=== PATIENT | female | born 1965 | race Caucasian/White ===

== ENCOUNTER 2016-10-11 08:07 | Emergency (ER) | payer OTHER ==
[~2016-10-11] VITALS: Ht 165.1 cm; Wt 54.4 kg
[~2016-10-11 08:07] MED LIST: ADDERALL 10 MG10 MG PO; CENTRUM SILVER1 EAC4 PO; CHROMIUM400 MCG PO; CO Q-10100 MG PO; DEPO-TESTO100 MG/1 M IM; DHEA25 MG PO; ESTRADIOL 1 MG T1 M1 IM; FISH OIL 1,001000 M2 PO; GLUCOSAMINE CH1 EAC2 PO; IBUPROFEN 600600 M1 PO; LUTEIN-ZEAXANT1 EACH PO; MAGNESIUM OXID400 MG PO; MULTIVITAMINS1 EAC7; NATURE-THROID97.5 MG PO; PERCOCET PO; PROGESTERONE100 MG PO; SOMATROPIN SUBQ; ULTRAM 50MG TAB50 MG PO; VITAMIN D35000 UNIT PO; WELLBUTRIN SR150 MG PO; [UNRECOGNIZED DRUG - OTHER] PO
[2016-10-11] MEDS ORDERED: TRIAMTERENE-HC1 EAC3 PO (08:35)
[2016-10-11 09:02] LABS: HEMATOCRIT 40.2 % (37.0-47.0); HEMOGLOBIN 13.9 gm/dL (12.0-15.0); MCH 31.1 pg (26.0-34.0); MCHC 34.4 % (28.0-37.0); MCV 90.5 fL (80.0-100.0); PLATELET COUNT 219 thou/uL (150-400); RBC 4.45 mil/uL (4.20-5.00); RDW 12.3 % (10.5-14.5); WBC 26.7 thou/uL (4.0-11.0)
[2016-10-11 09:04] LABS: CALCIUM 9.1 mg/dL (8.5-10.1); CREATININE 1.2 mg/dL (0.6-1.3); POTASSIUM 3.2 mmol/L (3.5-5.1)
[2016-10-11 09:10] LABS: ALBUMIN 2.7 g/dL (3.4-5.0); DIRECT BILIRUBIN 0.1 mg/dL (<0.1-0.3); MANUAL DIFF YES; TOTAL BILIRUBIN 0.6 mg/dL (<0.1-1.0); TOTAL PROTEIN 6.9 g/dL (6.4-8.2)
[2016-10-11 09:40] LABS: ABSOLUTE NEUTROPHILS 24.3 thou/uL (1.4-8.2); TOTAL CELL COUNT 100
[2016-10-11 10:20] LABS: URINE BILIRUBIN NEGATIVE (Negative); URINE BLOOD TRACE (Negative); URINE COLOR YELLOW; URINE GLUCOSE-RANDOM* NEGATIVE (Negative); URINE KETONES NEGATIVE (Negative); URINE LEUKOCYTES-REFLEX TRACE (Negative); URINE PROTEIN (DIPSTICK) 1+ (Negative); URINE UROBILINOGEN 0.2 E.U./dl (0.2-1.0)
[2016-10-11 10:27] LABS: CASTS None Seen /LPF (None Seen); CRYSTALS None Seen /LPF (None Seen); SQUAMOUS None Seen /LPF (0-3); URINE RBC None Seen /HPF (0-2); URINE WBC-REFLEX 0-5 Rare /HPF (0-5)
[2016-10-11] MEDS ORDERED: KEFLEX500 MG PO (10:30)
[2016-10-11] MEDS ORDERED: ZOFRAN ODT4 MG PO (10:32)
[2016-10-11 11:06] VITALS: BP 91/59
== END 2016-10-11 11:12 | disposition home or self-care (01) ==
LOC: ER 08:07
PROVIDERS: Emergency Medicine
DX: N39.0 Urinary tract infection, site not specified (principal); F10.99 Alcohol use, unspecified with unspecified alcohol-induced disorder; F90.9 Attention-deficit hyperactivity disorder, unspecified type; Z98.890 Other specified postprocedural states; Z95.9 Presence of cardiac and vascular implant and graft, unspecified